=== PATIENT | female | born 1940 | race Caucasian/White ===

== ENCOUNTER 2018-11-20 21:46 | Inpatient (IN) | payer OTHER, BC ==
[~2018-11-20] VITALS: Ht 165.1 cm; Wt 65.0 kg
[2018-11-20 22:12] LABS: BASOPHIL % 0.2 % (0-2); PLATELET COUNT 271 x10^3mcL (130-400); RED CELL DISTRIBUTION WIDTH 13.3 % (11.5-14.5)
[2018-11-20 22:21] LABS: CALCIUM 8.9 mg/dL (8.5-10.1); CARBON DIOXIDE 29.8 mmol/L (21-32); CHLORIDE SERUM 104 mmol/L (98-107); GLUCOSE SERUM 128 mg/dL (74-106); POTASSIUM SERUM 3.8 mmol/L (3.5-5.1); SODIUM SERUM 140 mmol/L (136-145)
[2018-11-20 22:26] LABS: ALBUMIN 3.5 g/dL (3.4-5.0); ALKALINE PHOSPHATASE 97 U/L (46-116); ALT/SGPT 19 U/L (14-59); AST/SGOT 20 U/L (15-37); BILIRUBIN TOTAL 0.39 mg/dL (0.20-1.00); TOTAL PROTEIN, SERUM 7.3 g/dL (6.4-8.2)
[2018-11-21] VITALS (7 sets, daily range): BP systolic 116–144; BP diastolic 41–67; Ht 165.1 cm; Wt 65.0 kg
[2018-11-21 00:36] LABS: microscopic required? YES; urine erythrocyte TRACE (NEGATIVE)
[2018-11-21 01:16] LABS: PHOSPHOROUS 3.2 mg/dL (2.5-4.9)
[2018-11-21 01:17] LABS: CHOLESTEROL/HDL RATIO 2.5
[2018-11-21] MEDS ORDERED: AMLODIPINE BESY10 M2 PO (02:16)
[2018-11-21] MEDS ORDERED: ARTIFICIAL TEAR15 M3 OU (02:17)
[2018-11-21] MEDS ORDERED: BAYER ASPIRIN R81 MG PO (02:18)
[2018-11-21] MEDS ORDERED: TESSALON PERLE100 MG PO (02:19)
[2018-11-21] MEDS ORDERED: [UNRECOGNIZED DRUG - OTHER] PO (02:20)
[2018-11-21] MEDS ORDERED: COLACE100 MG PO (02:21)
[2018-11-21] MEDS ORDERED: FERROUS SULFAT325 M2 PO (02:22)
[2018-11-21] MEDS ORDERED: FIBER GUMMIES1 EACH (02:23)
[2018-11-21] MEDS ORDERED: ISOSORBIDE DINIT5 M2 PO (02:25)
[2018-11-21] MEDS ORDERED: LEVOFLOXACIN500 M1 PO (02:27)
[2018-11-21] MEDS ORDERED: SYNTHROID0.05 MG PO (02:28)
[2018-11-21] MEDS ORDERED: LOSARTAN POTASS50 M1 PO (02:28)
[2018-11-21] MEDS ORDERED: MIRTAZAPINE15 M2 PO (02:29)
[2018-11-21] MEDS ORDERED: GOOD NEIGHBOR P20 M2 PO (02:31)
[2018-11-21] MEDS ORDERED: ZYPREXA2.5 M1 PO (02:31)
[2018-11-21] MEDS ORDERED: TRILEPTAL150 MG PO (02:32)
[2018-11-21] MEDS ORDERED: RESTASIS0.051 OU (02:34)
[2018-11-21] MEDS ORDERED: SENNA8.6 M2 PO (02:35)
[2018-11-21] MEDS ORDERED: SIMVASTATIN20 M1 PO (02:36)
[2018-11-21] MEDS ORDERED: TRA50 PO (02:39)
[2018-11-21] MEDS ORDERED: IBUPROFEN400 MG PO (02:40)
[2018-11-21] MEDS ORDERED: LOPERAMIDE HCL2 MG PO (02:43)
[2018-11-21] MEDS ORDERED: MECLIZINE HYD12.5 MG PO (02:45)
[2018-11-21] MEDS ORDERED: NITROGLYCERIN0.4 MG SL (02:46)
[2018-11-21] MEDS ORDERED: ONDANSETRON4 M3 PO (02:46)
[2018-11-21 06:21] LABS: BASOPHIL % 0.3 % (0-2); PLATELET COUNT 211 x10^3mcL (130-400); RED CELL DISTRIBUTION WIDTH 13.7 % (11.5-14.5)
[2018-11-21 06:39] LABS: CALCIUM 7.7 mg/dL (8.5-10.1); CARBON DIOXIDE 29.1 mmol/L (21-32); CHLORIDE SERUM 107 mmol/L (98-107); GLUCOSE SERUM 111 mg/dL (74-106); MAGNESIUM 1.9 mg/dL (1.8-2.4); PHOSPHOROUS 3.6 mg/dL (2.5-4.9); POTASSIUM SERUM 3.4 mmol/L (3.5-5.1); SODIUM SERUM 142 mmol/L (136-145)
[2018-11-22 05:54] VITALS: BP 142/68
[2018-11-22 06:29] LABS: BASOPHIL % 0.3 % (0-2); CALCIUM 8.3 mg/dL (8.5-10.1); CARBON DIOXIDE 30.2 mmol/L (21-32); CHLORIDE SERUM 107 mmol/L (98-107); GLUCOSE SERUM 108 mg/dL (74-106); PLATELET COUNT 226 x10^3mcL (130-400); POTASSIUM SERUM 3.6 mmol/L (3.5-5.1); RED CELL DISTRIBUTION WIDTH 13.6 % (11.5-14.5); SODIUM SERUM 144 mmol/L (136-145)
[2018-11-22 09:51] VITALS: BP 135/63
[2018-11-22 13:04] VITALS: BP 114/60
[2018-11-22 17:03] VITALS: BP 138/73
[2018-11-22 20:40] VITALS: BP 105/53
[2018-11-23 05:54] VITALS: BP 134/73
[2018-11-23 06:50] LABS: BASOPHIL % 0.4 % (0-2); PLATELET COUNT 244 x10^3mcL (130-400); RED CELL DISTRIBUTION WIDTH 13.4 % (11.5-14.5)
[2018-11-23 07:10] LABS: CALCIUM 8.5 mg/dL (8.5-10.1); CARBON DIOXIDE 28.8 mmol/L (21-32); CHLORIDE SERUM 107 mmol/L (98-107); CREATININE SERUM 0.9 mg/dL (0.6-1.0); GLUCOSE SERUM 96 mg/dL (74-106); SODIUM SERUM 143 mmol/L (136-145)
[2018-11-23 09:28] VITALS: BP 142/62
[2018-11-23 12:41] VITALS: BP 127/64
[2018-11-23 17:54] VITALS: BP 137/67
[2018-11-23 21:45] VITALS: BP 130/76
[2018-11-24] VITALS (7 sets, daily range): BP systolic 109–143; BP diastolic 61–73
[2018-11-24 06:38] LABS: BASOPHIL % 0.3 % (0-2); PLATELET COUNT 274 x10^3mcL (130-400); RED CELL DISTRIBUTION WIDTH 13.3 % (11.5-14.5)
[2018-11-24 06:40] LABS: CALCIUM 8.3 mg/dL (8.5-10.1); CARBON DIOXIDE 29.2 mmol/L (21-32); CHLORIDE SERUM 105 mmol/L (98-107); GLUCOSE SERUM 109 mg/dL (74-106); POTASSIUM SERUM 3.5 mmol/L (3.5-5.1); SODIUM SERUM 142 mmol/L (136-145)
[2018-11-25 06:08] VITALS: BP 138/64
[2018-11-25 06:52] LABS: BASOPHIL % 0.3 % (0-2); PLATELET COUNT 286 x10^3mcL (130-400); RED CELL DISTRIBUTION WIDTH 13.5 % (11.5-14.5)
[2018-11-25 07:13] LABS: CALCIUM 8.4 mg/dL (8.5-10.1); CARBON DIOXIDE 28.3 mmol/L (21-32); CHLORIDE SERUM 105 mmol/L (98-107); CREATININE SERUM 0.9 mg/dL (0.6-1.0); GLUCOSE SERUM 110 mg/dL (74-106); POTASSIUM SERUM 3.6 mmol/L (3.5-5.1); SODIUM SERUM 141 mmol/L (136-145)
[2018-11-25 10:22] VITALS: BP 140/65
[2018-11-25 14:00] VITALS: BP 114/63
[2018-11-25 17:00] VITALS: BP 93/53
[2018-11-25 20:29] VITALS: BP 111/58
[2018-11-26 05:25] VITALS: BP 130/70
[2018-11-26 06:42] LABS: BASOPHIL % 0.5 % (0-2); PLATELET COUNT 312 x10^3mcL (130-400); RED CELL DISTRIBUTION WIDTH 13.6 % (11.5-14.5)
[2018-11-26 06:53] LABS: CALCIUM 8.8 mg/dL (8.5-10.1); CHLORIDE SERUM 106 mmol/L (98-107); GLUCOSE SERUM 100 mg/dL (74-106); MAGNESIUM 2.4 mg/dL (1.8-2.4); PHOSPHOROUS 3.8 mg/dL (2.5-4.9); SODIUM SERUM 143 mmol/L (136-145)
[2018-11-26 09:09] VITALS: BP 120/58
[2018-11-26 10:10] VITALS: BP 120/58
[2018-11-26 12:15] VITALS: BP 125/68
[2018-11-26 17:25] VITALS: BP 122/65
[2018-11-26 21:13] VITALS: BP 103/62
[2018-11-27 05:03] VITALS: BP 129/67
[2018-11-27 05:50] LABS: BASOPHIL % 0.4 % (0-2); PLATELET COUNT 310 x10^3mcL (130-400); RED CELL DISTRIBUTION WIDTH 13.6 % (11.5-14.5)
[2018-11-27 06:41] LABS: CALCIUM 8.5 mg/dL (8.5-10.1); CARBON DIOXIDE 28.3 mmol/L (21-32); CHLORIDE SERUM 106 mmol/L (98-107); GLUCOSE SERUM 96 mg/dL (74-106); MAGNESIUM 2.4 mg/dL (1.8-2.4); PHOSPHOROUS 3.6 mg/dL (2.5-4.9); POTASSIUM SERUM 3.7 mmol/L (3.5-5.1); SODIUM SERUM 143 mmol/L (136-145)
[2018-11-27 09:22] VITALS: BP 108/59
[2018-11-27 13:35] VITALS: BP 90/56
[2018-11-27 18:20] VITALS: BP 101/60
[2018-11-27 19:25] VITALS: BP 91/52
[2018-11-28 06:14] VITALS: BP 118/58
[2018-11-28 06:28] LABS: BASOPHIL % 0.3 % (0-2); PLATELET COUNT 323 x10^3mcL (130-400); RED CELL DISTRIBUTION WIDTH 13.4 % (11.5-14.5)
[2018-11-28 06:39] LABS: CALCIUM 8.6 mg/dL (8.5-10.1); CARBON DIOXIDE 28.6 mmol/L (21-32); CHLORIDE SERUM 103 mmol/L (98-107); GLUCOSE SERUM 100 mg/dL (74-106); SODIUM SERUM 140 mmol/L (136-145)
[2018-11-28 09:25] VITALS: BP 116/59
[2018-11-28 15:51] VITALS: BP 125/60
[2018-11-28] MEDS ORDERED: LAC PO (16:25)
[2018-11-28] MEDS ORDERED: LEVAQUIN750 MG PO (16:25)
[2018-11-28 16:41] VITALS: BP 119/62
== END 2018-11-28 18:02 | DRG 871 ==
LOC: ED 21:46 → DU 11-21 00:36 → MU 11-21 00:36 → DU 11-21 03:07 → MU 11-27 10:11
PROVIDERS: Emergency Medicine; Internal Medicine; ADMIT Internal Medicine
DX: A41.9 Sepsis, unspecified organism (principal); J69.0 Pneumonitis due to inhalation of food and vomit; N17.0 Acute kidney failure with tubular necrosis; J96.01 Acute respiratory failure with hypoxia; J98.11 Atelectasis; F03.90 Unspecified dementia, unspecified severity, without behavioral disturbance, psychotic disturbance, mood disturbance, and anxiety; E87.6 Hypokalemia; I10 Essential (primary) hypertension; E78.5 Hyperlipidemia, unspecified; E03.9 Hypothyroidism, unspecified; F31.9 Bipolar disorder, unspecified; Z79.82 Long term (current) use of aspirin
CPT/HCPCS: 83880; 87804; 94150; 97110-GP; 97116-GP; 97530-GP; J0132; J2405; J2543; J7030; J7613; J7620; J7626; J7644; Q0092

== ENCOUNTER 2019-03-27 09:42 | Emergency (ER) | payer OTHER, BC ==
[~2019-03-27] VITALS: Ht 167.6 cm; Wt 61.2 kg
[~2019-03-27 09:42] MED LIST: AMLODIPINE BESY10 M2 PO; ARTIFICIAL TEAR15 M3 OU; BAYER ASPIRIN R81 MG PO; COLACE100 MG PO; FERROUS SULFAT325 M2 PO; FIBER GUMMIES1 EACH; GOOD NEIGHBOR P20 M2 PO; IBUPROFEN400 MG PO; ISOSORBIDE DINIT5 M2 PO; LAC PO; LEVAQUIN750 MG PO; LEVOFLOXACIN500 M1 PO; LOPERAMIDE HCL2 MG PO; LOSARTAN POTASS50 M1 PO; MECLIZINE HYD12.5 MG PO; MIRTAZAPINE15 M2 PO; NITROGLYCERIN0.4 MG SL; ONDANSETRON4 M3 PO; RESTASIS0.051 OU; SENNA8.6 M2 PO; SIMVASTATIN20 M1 PO; SYNTHROID0.05 MG PO; TESSALON PERLE100 MG PO; TRA50 PO; TRILEPTAL150 MG PO; ZYPREXA2.5 M1 PO; [UNRECOGNIZED DRUG - OTHER] PO
[2019-03-27 09:43] VITALS: Ht 167.6 cm; Wt 61.2 kg
[2019-03-27 12:55] VITALS: BP 125/88
== END 2019-03-27 12:55 | disposition home or self-care (01) ==
LOC: ED 09:42
DX: B02.9 Zoster without complications (principal); I10 Essential (primary) hypertension; Z98.890 Other specified postprocedural states
CPT/HCPCS: J7512

== ENCOUNTER 2019-06-14 15:25 | Inpatient (IN) | payer OTHER, BC ==
[~2019-06-14] VITALS: Ht 167.6 cm; Wt 72.0 kg
[2019-06-14 15:29] VITALS: Ht 167.6 cm; Wt 72.0 kg
[2019-06-14] MEDS ORDERED: CALCIUM GUMMIE1 EACH PO (16:03)
[2019-06-14 16:11] LABS: BASOPHIL % 0.3 % (0-2); PLATELET COUNT 256 x10^3mcL (130-400)
[2019-06-14 16:13] LABS: RED CELL DISTRIBUTION WIDTH 14.8 % (11.5-14.5)
[2019-06-14 16:33] LABS: CALCIUM 8.5 mg/dL (8.5-10.1); CARBON DIOXIDE 30.5 mmol/L (21-32); CHLORIDE SERUM 109 mmol/L (98-107); CREATININE SERUM 0.9 mg/dL (0.6-1.0); GLUCOSE SERUM 94 mg/dL (74-106); POTASSIUM SERUM 4.5 mmol/L (3.5-5.1); SODIUM SERUM 143 mmol/L (136-145)
[2019-06-14 16:42] LABS: ALBUMIN 3.5 g/dL (3.4-5.0); ALKALINE PHOSPHATASE 78 U/L (46-116); ALT/SGPT 19 U/L (14-59); AST/SGOT 13 U/L (15-37); BILIRUBIN TOTAL 0.52 mg/dL (0.20-1.00)
[2019-06-14 17:17] LABS: TOTAL PROTEIN, SERUM 6.6 g/dL (6.4-8.2)
[2019-06-14 17:28] LABS: UA SPECIFIC GRAVITY <=1.005 (1.005-1.035); microscopic required? YES; urine erythrocyte NEGATIVE (NEGATIVE)
[2019-06-14 19:01] LABS: T3 TOTAL 0.87 ng/mL
[2019-06-14 19:05] LABS: FREE T4 1.04 ng/dL (0.76-1.46); FREE THYROXINE INDEX 3.5 ug/dL (1.4-4.5); T4(THYROXINE) 9.3 ug/dL (4.7-13.3)
[2019-06-14 20:45] VITALS: BP 143/59
[2019-06-14 21:35] VITALS: BP 133/56
[2019-06-14 22:00] VITALS: BP 143/52
[2019-06-14 23:25] VITALS: BP 143/62
[2019-06-14 23:55] VITALS: BP 143/62
[2019-06-15] VITALS (8 sets, daily range): BP systolic 116–149; BP diastolic 45–96
[2019-06-15 05:12] LABS: CALCIUM 8.2 mg/dL (8.5-10.1); CARBON DIOXIDE 30.5 mmol/L (21-32); CHLORIDE SERUM 111 mmol/L (98-107); GLUCOSE SERUM 106 mg/dL (74-106); MAGNESIUM 2.1 mg/dL (1.8-2.4); PHOSPHOROUS 4.2 mg/dL (2.5-4.9); POTASSIUM SERUM 4.1 mmol/L (3.5-5.1); SODIUM SERUM 146 mmol/L (136-145)
[2019-06-15 05:29] LABS: BASOPHIL % 0.5 % (0-2); PLATELET COUNT 258 x10^3mcL (130-400)
[2019-06-15 05:32] LABS: RED CELL DISTRIBUTION WIDTH 14.7 % (11.5-14.5)
[2019-06-16 04:22] VITALS: BP 130/57
[2019-06-16 06:52] LABS: BASOPHIL % 0.6 % (0-2); PLATELET COUNT 230 x10^3mcL (130-400); RED CELL DISTRIBUTION WIDTH 13.7 % (11.5-14.5)
[2019-06-16 06:54] LABS: CALCIUM 8.1 mg/dL (8.5-10.1); CARBON DIOXIDE 26.3 mmol/L (21-32); CHLORIDE SERUM 110 mmol/L (98-107); GLUCOSE SERUM 94 mg/dL (74-106); POTASSIUM SERUM 3.8 mmol/L (3.5-5.1); SODIUM SERUM 145 mmol/L (136-145)
[2019-06-16 08:01] VITALS: BP 123/55
[2019-06-16 11:44] VITALS: BP 144/56
[2019-06-16] MEDS ORDERED: BACTRIM DS1 TAB PO (12:19)
[2019-06-16 16:12] VITALS: BP 139/53
[2019-06-16 19:42] VITALS: BP 147/46
[2019-06-17 05:21] VITALS: BP 130/55
[2019-06-17 06:34] LABS: CALCIUM 8.6 mg/dL (8.5-10.1); CARBON DIOXIDE 27.1 mmol/L (21-32); CHLORIDE SERUM 109 mmol/L (98-107); CREATININE SERUM 1.1 mg/dL (0.6-1.0); GLUCOSE SERUM 95 mg/dL (74-106); POTASSIUM SERUM 4.1 mmol/L (3.5-5.1); SODIUM SERUM 144 mmol/L (136-145)
[2019-06-17 07:26] LABS: BASOPHIL % 0.6 % (0-2)
[2019-06-17 07:33] VITALS: BP 137/58
[2019-06-17 07:41] LABS: PLATELET COUNT 246 x10^3mcL (130-400)
[2019-06-17 12:10] VITALS: BP 134/53
[2019-06-17 17:02] VITALS: BP 138/56
[2019-06-17 20:58] VITALS: BP 131/53
[2019-06-18 05:48] VITALS: BP 152/41
[2019-06-18 08:14] VITALS: BP 147/90
[2019-06-18 12:08] VITALS: BP 152/56
[2019-06-18 13:04] VITALS: BP 152/56
== END 2019-06-18 14:30 | DRG 690 ==
LOC: ED 15:25 → IC 17:10 → DU 17:10 → IC 20:35 → DU 06-15 16:37
PROVIDERS: Emergency Medicine; ADMIT Internal Medicine
DX: N39.0 Urinary tract infection, site not specified (principal); B02.29 Other postherpetic nervous system involvement; B96.20 Unspecified Escherichia coli [E. coli] as the cause of diseases classified elsewhere; I49.3 Ventricular premature depolarization; I10 Essential (primary) hypertension; E78.5 Hyperlipidemia, unspecified; E03.9 Hypothyroidism, unspecified; F03.90 Unspecified dementia, unspecified severity, without behavioral disturbance, psychotic disturbance, mood disturbance, and anxiety; Z96.643 Presence of artificial hip joint, bilateral; Z68.24 Body mass index [BMI] 24.0-24.9, adult
CPT/HCPCS: 84439; 97110-GP; 97116-GP; 97530-GP; G0378; J0461; J0696; J2405; J7030; Q0092

== ENCOUNTER 2019-11-30 21:03 | Emergency (ER) | payer OTHER, BC ==
[~2019-11-30] VITALS: Ht 170.2 cm; Wt 61.2 kg
[~2019-11-30 21:03] MED LIST changes: +BACTRIM DS1 TAB PO; +CALCIUM GUMMIE1 EACH PO
[2019-11-30 21:19] VITALS: Ht 170.2 cm; Wt 61.2 kg
[2019-11-30 22:21] LABS: BASOPHIL % 0.1 % (0-2); PLATELET COUNT 348 x10^3mcL (130-400); RED CELL DISTRIBUTION WIDTH 13.5 % (11.5-14.5)
[2019-11-30 22:33] LABS: CALCIUM 10.3 mg/dL (8.5-10.1); CHLORIDE SERUM 101 mmol/L (98-107); CREATININE SERUM 1.3 mg/dL (0.6-1.0); GLUCOSE SERUM 123 mg/dL (74-106); POTASSIUM SERUM 3.4 mmol/L (3.5-5.1); SODIUM SERUM 143 mmol/L (136-145)
[2019-11-30 22:41] LABS: ALBUMIN 3.6 g/dL (3.4-5.0); ALKALINE PHOSPHATASE 70 U/L (46-116); ALT/SGPT 23 U/L (14-59); AST/SGOT 29 U/L (15-37); BILIRUBIN TOTAL 0.3 mg/dL (0.20-1.00); LIPASE 153 IU/L (73-393); TOTAL PROTEIN, SERUM 7.1 g/dL (6.4-8.2)
[2019-12-01 00:15] LABS: UA SPECIFIC GRAVITY 1.025 (1.005-1.035); urine erythrocyte NEGATIVE (NEGATIVE)
[2019-12-01 00:16] LABS: microscopic required? YES
[2019-12-01 02:54] VITALS: BP 128/79
== END 2019-12-01 02:54 | disposition home or self-care (01) ==
LOC: ED 21:03
PROVIDERS: Emergency Medicine
DX: R11.2 Nausea with vomiting, unspecified (principal); R53.1 Weakness; R10.819 Abdominal tenderness, unspecified site; I10 Essential (primary) hypertension; Z98.890 Other specified postprocedural states
CPT/HCPCS: J2405; J7030